=== PATIENT | male | born 1995 | race Caucasian/White ===

== ENCOUNTER 2020-06-10 17:30 | Emergency (ER) | payer BC, OTHER ==
[~2020-06-10] VITALS: Ht 180 cm; Wt 74.8 kg
--- NOTE | 2020-06-10 17:50 | ED Upper Extremity ---
General Chief Complaint: Upper Extremity Stated Complaint: R ELBOW INJ Source: patient Exam Limitations: no limitations History of Present Illness Date Seen by Provider: Jun 10, 2020 Time Seen by Provider: 17:49 Initial Comments To ER with reports of severe right elbow pain after he jumped during a tennis and fell landing on the right elbow. No tingling in the fingers. Onset: just prior to arrival Severity: moderate Pain/Injury Location: right elbow Method of Injury: fell Modifying Factors: Worse With Movement Allergies and Home Medications Allergies Coded Allergies: No Known Drug Allergies (Unverified , 06/10/20) Patient Home Medication List Home Medication List Reviewed: Yes Review of Systems Constitutional: see HPI EENTM: see HPI Respiratory: no symptoms reported Cardiovascular: no symptoms reported Genitourinary: no symptoms reported Musculoskeletal: see HPI Skin: no symptoms reported Psychiatric/Neurological: No Symptoms Reported Past Ugxanoy-Uruiwi-Ushwrk Hx Patient Social History Recent Foreign Travel: No Contact w/Someone Who Travel: No Physical Exam Vital Signs Vital Signs - First Documented 06/10/20 17:43 Temp 36.6 Pulse 86 Resp 16 B/P (MAP) 104/67 (79) Pulse Ox 97 Capillary Refill : Height, Weight, BMI Height: '" Weight: lbs. oz. kg; BMI Method: General Appearance: WD/WN, no apparent distress Respiratory: no respiratory distress, no accessory muscle use Gastrointestinal: normal bowel sounds, non tender Shoulder: normal inspection Elbow/Forearm: Right, limited ROM, pain, soft tissue tenderness, swelling (strong radial pulse no paresthesias distally.) Hand: normal inspection, non-tender Neurologic/Tendon: normal sensation, normal motor functions Neurologic/Psychiatric: alert, normal mood/affect, oriented x 3 Skin: normal color, warm/dry Progress/Results/Core Measures Results/Orders My Orders Orders - MAVIS PICKERING APRN Oxycodone/Apap 5/325mg Tablet (Percocet (06/10/20 18:00) Elbow, Right, 3 Views (06/10/20 17:48) Vital Signs/I&O 06/10/20 17:43 Temp 36.6 Pulse 86 Resp 16 B/P (MAP) 104/67 (79) Pulse Ox 97 Diagnostic Imaging Diagonstic Imaging: Xray Comments NAME[facility] REC#: [id number] PT STATUS: REG ER : 1995 PHYSICIAN: MAVIS PICKERING APRN ADMIT DATE: 06/10/20/ER Draft Date of Exam:06/10/20 ELBOW, RIGHT, 3 VIEWS INDICATION: Pain after fall. COMPARISON: None available. TECHNIQUE: Three radiographs of the right elbow dated June 10, 2020. FINDINGS: Acute fracturing which is mildly distracted is identified through the proximal ulna extending through the olecranon fossa. This is associated with overlying soft tissue swelling involving the olecranon. The proximal fragment is retracted. No additional fracture. Elbow joint effusion is present. No suspicious radiopaque foreign body. IMPRESSION: 1. Acute proximal ulnar fracture extending through the olecranon fossa with retraction of the proximal fracture fragments. 2. Soft tissue swelling overlying the olecranon. 3. Elbow joint effusion is present. Dictated on workstation # [id number] Dict: 06/10/20 1805 Trans: 06/10/201810 [id number] Interpreted by: DEMETRA TIAN MD Electronically signed by: Departure Communication (Admissions) Patient was placed in a posterior long-arm splint remaining neurovascularly intact after doing so. He was then given a sling. Was given contact information for Dr. Atkins in [place] as Dr. Albert has previously referred patients with this type of fracture to him in my experience. Patient was offered Percocet for pain but states he doesn't want anything because he plans to go home and watch a movie and playing games with friends and doesn't want to be sleepy. Impression Primary Impression: Traumatic closed displaced fracture of olecranon process or proximal epiphysis of ulna Disposition: HOME, SELF-CARE Condition: Stable Departure-Patient Inst. Decision time for Depature: 18:22 Referrals: KRISTEL DAVID MD (PCP/Family) Primary Care Physician Patient Instructions: Elbow Fracture (DC) Add. Discharge Instructions: 1. Follow-up with orthopedics this week. Dr. Atkins in [place] or any orthopedic surgeon of your choosing (though to my knowledge Dr. Atkins is who we have sent patient's with this type of fracture to previously). Use the Percocet (acetaminophen/oxycodone) for pain control. If this is too sedating then you can just use Tylenol and ibuprofen as well. Keep the arm in the sling and splint, keep it clean and dry at all times. It may be easiest to put a trash bag over the arm and tape it around the top to keep this dry. All discharge instructions reviewed with patient and/or family. Voiced understanding. Scripts Oxycodone HCl/Acetaminophen (Percocet 5-325 mg Tablet) 1 Each Tablet 1 TAB PO Q4H for PAIN-MODERATE MDD 6 TABS for 7 Days, #14 TAB Prov: MAVIS PICKERING APRN 06/10/20 Work/School Note: Work Release Form Date Seen in the Emergency Department: Jun 10, 2020 Return to Work: Jun 16, 2020 Copy Copies To 1: KRISTEL DAVID MD, PETER J APRN Jun 10, 2020 17:50
[2020-06-10] MEDS ORDERED: oxyCODONE/APAP 5/325MG (PERCOCET 5) TABLET PO ONE (18:00)
--- NOTE | 2020-06-10 18:11 | Diagnostic Imaging Report ---
INDICATION: Pain after fall. COMPARISON: None available. TECHNIQUE: Three radiographs of the right elbow dated June 10, 2020. FINDINGS: Acute fracturing which is mildly distracted is identified through the proximal ulna extending through the olecranon fossa. This is associated with overlying soft tissue swelling involving the olecranon. The proximal fragment is retracted. No additional fracture. Elbow joint effusion is present. No suspicious radiopaque foreign body. IMPRESSION: 1. Acute proximal ulnar fracture extending through the olecranon fossa with retraction of the proximal fracture fragment. 2. Soft tissue swelling overlying the olecranon. 3. Elbow joint effusion is present. Dictated by: Dictated on workstation # [id number]
[2020-06-10] MEDS ORDERED: OXYC1TAB87 PO (18:42)
[2020-06-10] MEDS ORDERED: RX-OXYCODONE/APAP 5-325 MG #4 TAB PK PO ONE (18:48)
[2020-06-10 18:56] VITALS: BP 124/79
[2020-06-10] MEDS ORDERED: RX-OXYCODONE/APAP 5-325 MG #4 TAB PK PO PRN (19:00)
== END 2020-06-10 18:56 | disposition home or self-care (01) ==
LOC: ER 17:32
DX: S52.021A Displaced fracture of olecranon process without intraarticular extension of right ulna, initial encounter for closed fracture (principal); W18.39XA Other fall on same level, initial encounter; Y93.39 Activity, other involving climbing, rappelling and jumping off; Y93.73 Activity, racquet and hand sports
CPT/HCPCS: 29105; 73080; 99284; A4565

== ENCOUNTER 2022-12-10 05:32 | Outpatient (CLI) | payer BC ==
[~2022-12-10] VITALS: Ht 180.3 cm; Wt 89.9 kg
[~2022-12-10 05:32] MED LIST: OXYC1TAB87 PO
[2022-12-17] MEDS ORDERED: ACHD5005 PO (13:04)
== END 2022-12-11 13:08 | disposition home or self-care (01) ==
LOC: PREOP 05:32
PROVIDERS: ATTEND Surgery
DX: Z01.818 Encounter for other preprocedural examination (principal)

== ENCOUNTER 2022-12-17 10:15 | Day surgery (SDC) | payer BC ==
[2022-12-17] VITALS (10 sets, daily range): BP systolic 104–112; BP diastolic 44–70
[~2022-12-17] VITALS: Ht 180 cm; Wt 89.9 kg
[2022-12-17] MEDS ORDERED: LACTATED RINGERS 1,000 ML IV PRN (11:00)
[2022-12-17] MEDS ORDERED: ceFAZolin INJECTION 2,000 MG in NS (IVPB) 50 ML IV ONE (11:00)
--- NOTE | 2022-12-17 11:57 | Progress Note-Pre Operative ---
Pre-Operative Progress Note Date of Available H&P: Dec 02, 2022 Date H&P Reviewed: December 17, 2022 Time H&P Reviewed: 11:53 History & Physical: H&P Reviewed, Patient Examed, No changes noted Pre-Operative Diagnosis: pilonidal cyst KANDICE HERNANDEZ DO December 17, 2022 11:56
[2022-12-17] MEDS ORDERED: LIDOCAINE PF 2% 5 ML (XYLOCAINE) VIAL ONE (12:13)
[2022-12-17] MEDS ORDERED: proPOfol 200 MG/20 ML (DIPRIVAN) VIAL IV ONE (12:13)
[2022-12-17] MEDS ORDERED: GLYCOPYRROLATE 0.2 MG/ML (ROBINUL) 2 ML VIAL ONE (12:13)
[2022-12-17] MEDS ORDERED: ONDANSETRON 4 MG/2 ML (SDV) Z0FRAN ONE (12:13)
[2022-12-17] MEDS ORDERED: fentaNYL INJ 100 MCG/2 ML AMP ONE (12:13)
[2022-12-17] MEDS ORDERED: MIDAZOLAM 2 MG/2 ML (VERSED) VIAL ONE (12:13)
[2022-12-17] MEDS ORDERED: BUP/EPI 0.5% 1:200,000 (SENSORCAINE) 30 ML VIAL ONE (12:27)
[2022-12-17] MEDS ORDERED: SUGAMMADEX 500 MG/5 ML VIAL (BRIDION) IV ONE (13:03)
--- NOTE | 2022-12-17 13:03 | Progress Note-Post Operative ---
Post-Operative Progess Note Surgeon (s)/Geological Technical Officer (s) Surgeon KANDICE HERNANDEZ DO Geological Technical Officer: BRANDON Huerta student Pre-Operative Diagnosis pilonidal cyst Post-Operative Diagnosis same Procedure & Operative Findings Date of Procedure 12/17/22 Procedure Performed/Findings Excision of pilonidal cyst with iodoform packing. INDICATION FOR PROCEDURE: The patient is a 27 male , who has a pilonidal cyst that has been draining and he wants to get this removed. PROCEDURE NOTE: After informed consent was obtained, the patient was brought to the operating room. He was intubated and placed on table in a prone position. He was sterilely prepped and draped in a normal fashion. The lidocaine was used to infiltrate the skin around this pilonidal cyst. I went around the two small openings in the gluteal crease and up on the patient's right side. I elected to do an elliptical incision coming from the outside of the previous abscess area towards the midline pilonidal cyst, then made an incision with #15 blade, carried down through the skin into subcutaneous tissue. This measured 3.7 x 2.3 x 2cm deep. It was deepened through the subcutaneous tissue with Bovie electrocautery, taking this down all the way to the sacrum, removing all of the abscess cavity and the midline pilonidal cyst, passing this off the table. Hemostasis was obtained using Bovie elec trocautery. Copiously irrigated with normal saline and then packed with a half inch iodoform packing. The area was cleaned and dried. A pressure dressing was placed. The patient was transferred to recovery room in stable condition. Sponge, instrument and needle count correct at the end of the case. Anesthesia Type GET Estimated Blood Loss Estimated blood loss (mL): less than 10ml Specimens/Packing Specimens Removed pilonidal cyst and tissue KANDICE HERNANDEZ DO December 17, 2022 13:03
[2022-12-17] MEDS ORDERED: ACHD5005 PO (13:04)
--- NOTE | 2022-12-17 13:05 | Discharge Inst-Surgical ---
Discharge Inst-Surgical Depart Medication/Instructions New, Converted or Re-Newed RX: Transmitted to Pharmacy Patient Instructions Follow up Appt: Make appointment for 1 week. [phone] Instructions: No lifting greater than 20 pounds. No strenuous activity. May shower in 24 hours, no tub bath or soaking. Use incentive spirometer at home as directed. No Smoking Skin/Wound Care: May remove bandages in am. You need to leave the Dermabond on incision it will fall off on it's own. Symptoms to Report: Appetite Changes, Extremity Discoloration, Numbness/Tingling, Swelling Increased, Bleeding Excessive, Eyesight Changes, Pain Increased, Urine Color Change, Constipation(Persistent), Fever over 101 degree F, Pain/Pressure in chest, Urinating Difficulty, Cough Up/Vomit Blood, Heart Beat Irreg/Pounding, Pain/Pressure in jaw, Cramps in feet or legs, Lightheadedness, Pain/Pressure in shoulder, Diarrhea(Persistent), Memory Changes Suddenly, Questions/Concerns, Weight gain consecutive days, Dizziness/Fainting, Nausea/Vomiting, Shortness of Breath, Weight gain over 2 pounds If questions or concerns contact your physician Or seek help at emergency department. Activity Activity as Tolerated: Yes Activity Instructions: Avoid Stress to Incision Driving Instructions: No Driving/Refer to Dr. Hurtado Discharge Diet: No Restrictions Diet After 24 Hours: Clear Liquid if Nauseous If Any Problems/Questions/Issu: Contact Your Physician, Go to Emergency Room Skin/Wound Care Infection Signs and Symptoms: Increased Redness, Foul Odor of Wound, Increased Drainage, Skin Itchy or Has a Rash, Increased Swelling, Temperature Above 101 F Bathing Instructions: KANDICE Koch DO December 17, 2022 13:05
[2022-12-17] MEDS ORDERED: morphine INJ 10 MG/ML 1ML (SYR OR VIAL) IVP ONE (14:00)
[2022-12-17] MEDS ORDERED: ONDANSETRON 4 MG/2 ML (SDV) Z0FRAN IVP PRN (14:00)
--- NOTE | 2022-12-17 14:01 | Anesthesia-General Post-Op ---
General Patient Condition Mental Status/LOC: Same as Preop Cardiovascular: Satisfactory Nausea/Vomiting: Absent Respiratory: Satisfactory Pain: Controlled Complications: Absent Post Op Complications Complications None Follow Up Care/Instructions Patient Instructions None needed. Anesthesia/Patient Condition Patient Condition Patient was just discharged from PACU to [facility] [place] and he is doing well, no complaints, stable vital signs, no apparent adverse anesthesia problems. No complications reported per nursing. ERMA DEWEY DO December 17, 2022 14:01
== END 2022-12-17 15:15 ==
LOC: SDC 10:15
PROVIDERS: ATTEND Surgery
DX: L05.01 Pilonidal cyst with abscess (principal)
CPT/HCPCS: 87081

== ENCOUNTER 2023-01-05 08:40 | Outpatient (RCR) | payer BC ==
[2022-12-20 10:05] VITALS: BP 112/80
[2022-12-21 09:55] VITALS: BP 126/58
[2022-12-27 09:04] VITALS: BP 118/75
[2022-12-28 09:28] VITALS: BP 108/71
[2023-01-03 09:00] VITALS: BP 110/62
[2023-01-04 08:29] VITALS: BP 110/62
[~2023-01-05] VITALS: Wt 89.9 kg
[~2023-01-05 08:40] MED LIST changes: +ACHD5005 PO
[2023-01-05 08:46] VITALS: BP 110/62
== END 2023-01-07 | disposition home or self-care (01) ==
LOC: SDC 08:40
PROVIDERS: ATTEND Nurse Practitioner
DX: L05.91 Pilonidal cyst without abscess (principal)
CPT/HCPCS: 99212

== ENCOUNTER 2023-01-11 09:00 | Outpatient (RCR) | payer BC ==
[2023-01-10 09:32] VITALS: BP 111/76
[~2023-01-11] VITALS: Ht 172.7 cm; Wt 89.9 kg
[2023-01-11 09:20] VITALS: BP 114/64
[2023-01-17 16:05] VITALS: BP 143/75
[2023-01-18 10:10] VITALS: BP 130/67
== END 2023-02-06 | disposition home or self-care (01) ==
LOC: SDC 09:00
PROVIDERS: ATTEND Nurse Practitioner
DX: L05.91 Pilonidal cyst without abscess (principal)
CPT/HCPCS: 99212